=== PATIENT | female | born 1970 | race American Indian/Alaskan Native ===

== ENCOUNTER 2017-02-02 16:44 | Emergency (ER) | payer OTHER ==
[2017-02-02] MEDS ORDERED: TYLENOL/CODEINE PO ONE (18:45)
--- NOTE | 2017-02-02 18:51 | Emergency Department Report ---
HPI - General Chief Complaint: Headache Time Seen by Provider: 02/02/17 18:41 - HPI HPI: Patient is a 45-year-old female who presents to ED complaining of generalized body aches, 3 episodes of vomiting, intermittent fever 2 days. Patient states yesterday she had a fever and was 103. The patient states is not taking any medication other than vitamin D and iron pills daily. Patient states that this repaired was taken on 2017. Patient has midsternal cough that has not resolved from her cold from 2 weeks ago. Patient states yesterday she started getting generalized throbbing, nonradiating, headache. Patient states it feels like a sinus headache. Patient denies diarrhea, nausea, chest pain, chest pressure, dizziness, any other problems ED Past Medical Hx - Past Medical History Additional medical history: SVT - Surgical History Additional Surgical History: tubal ligation - Social History Smoking Status: Never Smoker Substance Use Type: None - Medications Home Medications: Home Medications Medication Instructions Recorded Confirmed Last Taken Type Diltiazem 24Hr ER 120 mg PO DAILY #30 01/02/16 Unknown Rx Digoxin [Lanoxin] 0.125 mg PO DAILY #30 tablet 09/14/16 Unknown Rx Nebivolol HCl [Bystolic] 5 mg PO QDAY #30 tablet 10/06/16 Unknown Rx Acetamin/Codeine 120-12Mg/5 ml 5 ml PO TID #90 ml 02/02/17 Unknown Rx [Tylenol/Codeine 120-12 mg/5 ml] Azithromycin [Zithromax] 250 mg PO DAILY #6 tablet 02/02/17 Unknown Rx Cyclobenzaprine [Flexeril] 10 mg PO QHS PRN #24 tablet 02/02/17 Unknown Rx ED Review of Systems ROS: Stated complaint: FEVER 103/VOMITING/BODY ACHE Other details as noted in HPI Constitutional: fever. denies: chills Eyes: denies: eye pain, eye discharge, vision change ENT: denies: ear pain, throat pain Respiratory: cough. denies: shortness of breath, wheezing Cardiovascular: denies: chest pain, palpitations Endocrine: no symptoms reported Gastrointestinal: vomiting. denies: abdominal pain, nausea, diarrhea, constipation, hematochezia Genitourinary: denies: urgency, dysuria, frequency, hematuria, discharge, dyspareunia Musculoskeletal: denies: back pain, joint swelling, arthralgia Skin: denies: rash, lesions Neurological: denies: headache, weakness, numbness, paresthesias, confusion, abnormal gait Psychiatric: denies: anxiety, depression Hematological/Lymphatic: denies: easy bleeding, easy bruising Physical Exam - Physical Exam Vital Signs: Vital Signs 02/02/17 17:37 Temperature 99.8 F H Pulse Rate 102 H Respiratory 20 Rate Blood Pressure 144/91 O2 Sat by Pulse 100 Oximetry Physical Exam: GENERAL: Alert and oriented x3, no apparent distress, Normal Gait, atraumatic. HEAD: Head is normocephalic and a-traumatic. EYES: Extra ocular muscles are intact. Pupils are equal, round, and reactive to light and accommodation. EARS: symetrical, atraumatic, non tender, ear canal clear and moderate cerumen, tympanic membrance non inflamed. gross auditory nml bilaterally. NOSE: Nose symetrical, Nontender,Nares appeared normal. MOUTH:Mouth is well hydrated and without lesions. Tonsils nonerythematous or swollen, Uvula midline, Tongue not elevated. Mucous membranes are moist. Posterior pharynx clear, no exudate or lesions. Patent airways. NECK: Supple. Non edematous, No carotid bruits. No lymphadenopathy or thyromegaly. LUNGS: Symetrical with respiration, No wheezing, no rales or crackles, CTAB. HEART: S1, S2 present, regular rate and rhythm without murmur, no rubs, no gallops. ABDOMEN: No organomegaly was noted,Positive bowel sounds, soft, and non- distended. . Nontender to palpation on all Quadrants, NO CVA tenderness. EXTREMITIES/MUSCULOSKELETAL: No cyanosis, clubbing, rash, lesions or edema. Full ROM bilaterally. UE/LE Pulses 2+ bilaterally. NEUROLOGIC: No focal Deficit, Cranial nerves II through XII are grossly intact. No loss of sensation, PSYCHIATRIC: Mood is congruent with affect, denies suicidal or homicidal ideations. SKIN: Warm and dry, No lesions, No ulceration or induration present. ED Course Vital Signs 02/02/17 17:37 Temperature 99.8 F H Pulse Rate 102 H Respiratory 20 Rate Blood Pressure 144/91 O2 Sat by Pulse 100 Oximetry ED Medical Decision Making - Lab Data Result diagrams: 02/02/17 18:57 02/02/17 18:57 - Medical Decision Making She is a 46-year-old female presents with URI. ED course: Patient received 1 dose of Percocet, Tylenol with Codeine. And 1 dose of azithromycin. Vital signs are stable. Patient is in no acute or restricted distress. Discussed the patient to rest, drink plenty of water, take vitamins daily. Discussed to take antibiotic therapy as prescribed. Patient reports feeling better prior to discharge. Discussed the patient took medication as prescribed. Disposition follow-up with primary care physician. Discussed with patient symptoms worsen to return to eat nearest ED. Patient verbally states she understands and will comply and follow-up. Critical care attestation.: If time is entered above; I have spent that time in minutes in the direct care of this critically ill patient, excluding procedure time. ED Disposition Clinical Impression: Flu-like symptoms URI (upper respiratory infection) Qualifiers: URI type: unspecified URI Qualified Code(s): J06.9 - Acute upper respiratory infection, unspecified Disposition: DISCHARGED TO HOME OR SELFCARE Is pt being admited?: No Does the pt Need Aspirin: No Condition: Stable Instructions: Analgesic/Decongestant (By mouth), Influenza (ED), Upper Respiratory Infection (ED) Prescriptions: Cyclobenzaprine [Flexeril] 10 mg PO QHS PRN #24 tablet PRN Reason: Muscle Spasm Acetamin/Codeine 120-12Mg/5 ml [Tylenol/Codeine 120-12 mg/5 ml] 5 ml PO TID #90 ml Azithromycin [Zithromax] 250 mg PO DAILY #6 tablet Referrals: PRIMARY MD CLYDE [Primary Care Provider] - 3-5 Days CALIN AWAN MD [Referring] - 3-5 Days LADONNA FERNANDO MD [Referring] - 3-5 Days BEATRIZ JAVED MD [Referring] - 3-5 Days Forms: Accompanied Note, Work/School Release Form(ED) Time of Disposition: 20:48
[2017-02-02 19:12] LABS: Basophils % (Auto) 0.5 % (0.0-1.8); Eosinophils % (Auto) 0.2 % (0.0-4.3); Hematocrit 28.8 % (30.3-42.9); Hemoglobin 9.2 gm/dl (10.1-14.3); Mean Corpuscular HGB Conc 32 % (30-34); Mean Corpuscular Hemoglobin 22 pg (28-32); Mean Corpuscular Volume 68 fl (79-97); Platelet Count 411 K/mm3 (140-440); Red Blood Count 4.26 M/mm3 (3.65-5.03); Red Cell Distribution Width 19.5 % (13.2-15.2); White Blood Count 9.2 K/mm3 (4.5-11.0)
[2017-02-02 19:27] LABS: Alanine Aminotransferase 12 units/L (7-56); Albumin 3.9 g/dL (3.9-5); Albumin/Globulin Ratio 1.1 %; Alkaline Phosphatase 82 units/L (35-129); Anion Gap 15 mmol/L; BUN/Creatinine Ratio 8.57; Bilirubin,Total 0.4 mg/dL (0.1-1.2); Blood Urea Nitrogen 6 mg/dL (7-17); Calcium 8.8 mg/dL (8.4-10.2); Carbon Dioxide 24 mmol/L (22-30); Chloride 99.5 mmol/L (98-107); Glucose 93 mg/dL (65-100); Potassium 3.6 mmol/L (3.6-5.0); Sodium 135 mmol/L (137-145); Total Protein 7.5 g/dL (6.3-8.2)
[2017-02-02 20:23] LABS: Bacteria,Urine 2+ /HPF (Negative); Bilirubin,Urine NEG (Negative); Blood,Urine SM (Negative); Ketones,Urine NEG (Negative); Leukocyte Esterase,Urine TR (Negative); Mucus,Urine FEW /HPF; Nitrite,Urine NEG (Negative); Protein,Urine <15 mg/dL mg/dL (Negative); Urobilinogen,Urine < 2.0 mg/dL (<2.0); WBC,Urine < 1.0 /HPF (0.0-6.0)
[2017-02-02] MEDS ORDERED: PERCOCET 5/325 PO ONE (20:38)
[2017-02-02 21:21] VITALS: BP 136/80
== END 2017-02-02 21:22 | disposition home or self-care (01) ==
LOC: ED 16:44
DX: J06.9 Acute upper respiratory infection, unspecified (principal)
CPT/HCPCS: 36415; 80053; 81001; 84703; 85025; 99283